=== PATIENT | male | born 2000 | race Caucasian/White ===

== ENCOUNTER 2023-04-02 04:47 | Emergency (ER) | payer OTHER, SELFPAY ==
[2023-04-02] VITALS (8 sets, daily range): BP systolic 115–141; BP diastolic 63–88; PULSE 50–60; RESP 16; TEMP 36.6; O2SAT 94–98; BMI 25.8
--- NOTE | 2023-04-02 05:01 | ED.HEATRA1 ---
HPI - Head Injury General Chief complaint: Head Injury Stated complaint: HEADACHE Time Seen by Provider: 04/02/23 05:00 History of Present Illness HPI Narrative: Patient presents to emergency department complaining of headache. Patient states he had a fall from a ladder approximately 7 feet with loss of consciousness for a minute. He was seen at the [facility] emergency Department on 03/29/2023. He had some coffee-ground emesis and subsequently was sent to [facility] where he had a brain CT scan repeated and was found to have frontal hemorrhagic contusion, left temporal fracture and a small left temporal hemorrhage. Patient was discharged home yesterday on a scopolamine patch, and fioricet. Patient returned today complaining of worsening headache. He states is very nauseated and has epigastric discomfort. He states he had an ultrasound done at the bedside but has not had any imaging of his abdomen done. Patient denies any visual disturbance, or speech difficulties. He denies any paresthesias, or weakness. He denies any chest pain, or shortness of breath. Related Data Home Medications Medication Instructions Recorded Confirmed [id number]-qmtwiwsvwipyc-ehymyswe 1 tab PO Q4H 04/02/23 04/02/23 50 mg-325 mg-40 mg tablet sodium chloride 04/02/23 Allergies Allergy/AdvReac Type Severity Reaction Status Date / Time No Known Drug Allergies Allergy Verified 04/02/23 05:05 Review of Systems ROS Status of ROS 10 or more systems reviewed and unremarkable except as noted in history and below PFSH PFSH Social History Smoking status: Never smoker Exam Narrative Exam Narrative: Nurses notes and vital signs reviewed and patient is not hypoxic. General: Nontoxic, appears in pain, but in no apparent distress. Skin: Warm, dry, no pallor noted. No Rash Head: Normocephalic, 2 denton to the occipital area Neck: Supple, non-tender. Eye: Pupils are equal, round and EOMI. No scleral icterus. Ears, Nose, Mouth, and Throat: no Hemotympanum,TM clear, no posterior oropharynx erythema or nasal mucosal hypertrophy, uvula is mid-line Oral mucosa is moist Cardiovascular: Regular Rate and Rhythm without murmur, gallop or rub. Respiratory: No accessory muscle use or respiratory distress. Lungs are clear to auscultation, no wheezing, rales or rhonchi Chest Wall: no tenderness Back: No midline thoracic or lumbar vertebral tenderness. No CVA tenderness Musculoskeletal: normal ROM, no calf or popliteal tenderness, no lower extremity edema/swelling GI: Abdomen is soft, non-distended. Normal bowel sounds. No masses appreciated. No tenderness to palpation. No rebound, guarding, or rigidity noted. Neurological: A&O x4. No cranial nerve dysfunction observed. No truncal ataxia. Moves all extremities. Sensation intact. Psychiatric: Cooperative and interactive. Normal mood and affect. Constitutional Vital Signs - 24 hr 04/02/23 04:51 04/02/23 07:04 04/02/23 07:06 Temperature 98 F Pulse Rate [Monitor] 50 L 60 Respiratory Rate 16 16 Blood Pressure Blood Pressure [Left Arm] 115/64 122/63 H Pulse Oximetry 97 98 97 Oxygen Delivery Method Room Air Room Air 04/02/23 07:07 Temperature Pulse Rate [Monitor] Respiratory Rate Blood Pressure 120/69 H Blood Pressure [Left Arm] Pulse Oximetry 97 Oxygen Delivery Method Course Vital Signs Vital signs: Vital Signs Temperature 98 F 04/02/23 04:51 Pulse Rate 50 L 04/02/23 04:51 Respiratory Rate 16 04/02/23 04:51 Blood Pressure 115/64 04/02/23 04:51 Pulse Oximetry 97 04/02/23 04:51 Oxygen Delivery Method Room Air 04/02/23 04:51 Temperature 98 F 04/02/23 04:51 Pulse Rate 60 04/02/23 07:04 Respiratory Rate 16 04/02/23 07:04 Blood Pressure 120/69 H 04/02/23 07:07 Pulse Oximetry 97 04/02/23 07:07 Oxygen Delivery Method Room Air 04/02/23 07:04 MDM - Head Injury MDM Narrative Medical decision making narrative: Patient had an IV established, given 1 L of normal saline, 4 mg of Zofran, and 4 mg of morphine. pt has scopolamine patch on. He states he is getting more nauseated and has epigastric pain. Patient was given Pepcid, Phenergan, and a gastrointestinal cocktail was ordered but he still has not been giving until the nausea is controlled. All results discussed with patient. Radiologist has called me to advise me of the CT scan findings. At this point we still did not have the CT scan results and records from [facility]. Once the records were obtained they were reviewed and trauma surgeon Dr. Wall was intact to discuss the patient. The images where pushed through to [facility] PACS system so that they can review all of the CT scans. Dr. Wall will call us back. Trauma surgery calls back and states he is able to review all of the images. He does not see significant change and the hemorrhage or the edema. He advised if we can continue to give the patient analgesics and antibiotics and see how he does we could discharge if he improves however if the patient is not improving they will be happy to accept him there as a transfer. The patient stated his headache had improved but he was having abdominal pain worsened epigastric region and right upper quadrant pain. At this time a CT scan of the abdomen and pelvis with IV contrast was ordered. The patient will be signed out to Dr. Mann the end of my shift awaiting CT scan results, reevaluation, and disposition. Lab Data Attestation: I reviewed the patient's lab results. Labs: Lab Results 04/02/23 Range/Units 05:10 Sodium 136 (136-145) mmol/L Potassium 3.8 (3.5-5.1) mmol/L Chloride 103 (98-107) mmol/L Carbon Dioxide 23.6 (21.0-32.0) mmol/L Anion Gap 13.2 BUN 9.0 (7.0-18.0) mg/dL Creatinine 1.00 (0.70-1.30) mg/dL Est GFR ( Amer) >60 (>=60) Est GFR (Non-Af Amer) >60 (>=60) BUN/Creatinine Ratio 9.0 Glucose 93 (74-106) mg/dL Calcium 8.6 (8.5-10.1) mg/dL Total Bilirubin 0.7 (0.2-1.0) mg/dL AST 24 (15-37) U/L ALT 63 (16-63) U/L Alkaline Phosphatase 50 (46-116) U/L Total Protein 7.1 (6.4-8.2) g/dL Albumin 3.5 (3.4-5.0) g/dL Globulin 3.6 g/dL Albumin/Globulin Ratio 1.[address] scan - head: Attestation: I have reviewed the pertinent imaging results. Radiologist's impression: Patient Name: CALLI OWEN MRN: [id number] date: 2000 Sex: M Assigned Patient Location: ER Current Patient Location: ER Accession/Order Number: [id number] Exam Date: 04/02/2023 05:20 Report Date: 04/02/2023 05:59 At the request of: JONY RAMOS Procedure: CT head/brain wo con EXAM: CT head/brain wo con HISTORY: head injury COMPARISON: None. TECHNIQUE: Axial CT images of the brain were obtained without contrast. Dose reduction techniques were achieved by using automated exposure control and/or adjustment of mA and/or kV according to patient size and/or use of iterative reconstruction technique. FINDINGS: The ventricles and cerebral sulci appear age-appropriate. There is evidence of hemorrhagic contusions within the anterior inferior bifrontal lobes, right greater than left with the largest hemorrhagic component measuring approximately 5 mm with surrounding vasogenic edema.. Hemorrhagic contusions also noted along the inferior left temporal lobe, largest component measuring 7 mm. Hemorrhagic contusion versus small subdural hemorrhage noted along the anterior left temporal convexity. Small focus of cortical contusion noted along the parasagittal left frontal lobe. No evidence for midline shift or herniation. No evidence for obstructive hydrocephalus. No acute territorial infarct visualized. Basal cisterns are patent. Acute nondisplaced fracture visualized along the left temporal bone/mastoid region. Hemorrhagic products noted within the left-sided mastoid air cells. The ossicles appear intact. Orbits appear unremarkable. IMPRESSION: Study is limited by motion degraded artifact. 1. Acute hemorrhagic contusions with surrounding vasogenic edema noted involving the anterior inferior bifrontal lobes, right greater than left and with involvement of the inferior left temporal lobe, with the largest hemorrhagic component measuring 7 mm. Hemorrhagic contusion versus small subdural hemorrhage noted along the anterior left temporal convexity. 2. No evidence for significant mass effect or midline shift. 3. Acute nondisplaced fracture visualized along the left temporal bone/mastoid air cells with trace hemorrhagic products noted within the left mastoid air cells. Ossicles appear intact. Findings were relayed to Dr. Ramos over telephone by Dr. Martinez at 5:58 AM on 04/02/2023. Electronically authenticated by: GIFTY MARTINEZ Date: 04/02/2023 05:59 Discharge Plan Discharge Chief Complaint: Head Injury Clinical Impression: Traumatic intraparenchymal hemorrhage Prescriptions / Home Meds: No Action [id number]-[id number] 50-325-40 mg tablet 1 tab PO Q4H sodium chloride 1 g capsule Rx Instructions: 2 tabs by mouth TID for 7 days Referrals: Physician,Non-Staff, MD [Primary Care Provider] - 1 week
--- NOTE | 2023-04-02 05:07 | CT_ITS ---
The [address] [address] Patient Name: CALLI OWEN MRN: [id number] date: 2000 Sex: M Assigned Patient Location: ER Current Patient Location: ER Accession/Order Number: [id number] Exam Date: 04/02/2023 05:20 Report Date: 04/02/2023 05:59 At the request of: JONY RAMOS Procedure: CT head/brain wo con EXAM: CT head/brain wo con HISTORY: head injury COMPARISON: None. TECHNIQUE: Axial CT images of the brain were obtained without contrast. Dose reduction techniques were achieved by using automated exposure control and/or adjustment of mA and/or kV according to patient size and/or use of iterative reconstruction technique. FINDINGS: The ventricles and cerebral sulci appear age-appropriate. There is evidence of hemorrhagic contusions within the anterior inferior bifrontal lobes, right greater than left with the largest hemorrhagic component measuring approximately 5 mm with surrounding vasogenic edema.. Hemorrhagic contusions also noted along the inferior left temporal lobe, largest component measuring 7 mm. Hemorrhagic contusion versus small subdural hemorrhage noted along the anterior left temporal convexity. Small focus of cortical contusion noted along the parasagittal left frontal lobe. No evidence for midline shift or herniation. No evidence for obstructive hydrocephalus. No acute territorial infarct visualized. Basal cisterns are patent. Acute nondisplaced fracture visualized along the left temporal bone/mastoid region. Hemorrhagic products noted within the left-sided mastoid air cells. The ossicles appear intact. Orbits appear unremarkable. IMPRESSION: Study is limited by motion degraded artifact. 1. Acute hemorrhagic contusions with surrounding vasogenic edema noted involving the anterior inferior bifrontal lobes, right greater than left and with involvement of the inferior left temporal lobe, with the largest hemorrhagic component measuring 7 mm. Hemorrhagic contusion versus small subdural hemorrhage noted along the anterior left temporal convexity. 2. No evidence for significant mass effect or midline shift. 3. Acute nondisplaced fracture visualized along the left temporal bone/mastoid air cells with trace hemorrhagic products noted within the left mastoid air cells. Ossicles appear intact. Findings were relayed to Dr. Ramos over telephone by Dr. Wolfe at 5:58 AM on 04/02/2023. Electronically authenticated by: GIFTY WOLFE Date: 04/02/2023 05:59
[2023-04-02] MEDS: 0.9 % SODIUM CHLORIDE 1,000 ML 999 ML IV (05:33)
[2023-04-02] MEDS: MORPHINE SULFATE 4 MG/ML VIAL IV (05:33)
[2023-04-02] MEDS: ONDANSETRON PF 4 MG/2 ML VIAL IV (05:33)
[2023-04-02] MEDS: FAMOTIDINE/PF 20 MG/2 ML VIAL IV (06:38)
[2023-04-02] MEDS: PROMETHAZINE HCL 25 MG/ML VIAL IV (06:38)
[2023-04-02] MEDS: 0.9 % SODIUM CHLORIDE 50 ML 100 ML IV (07:02)
[2023-04-02 07:08] LABS: Alanine Aminotransferase 63 U/L (16-63); Albumin Level 3.5 g/dL (3.4-5.0); Alkaline Phosphatase 50 U/L (46-116); Anion Gap 13.2; Aspartate Amino Transferase 24 U/L (15-37); Bilirubin Total 0.7 mg/dL (0.2-1.0); Calcium 8.6 mg/dL (8.5-10.1); Carbon Dioxide 23.6 mmol/L (21.0-32.0); Chloride 103 mmol/L (98-107); Estimated GFR (African America >60 (>=60); Estimated GFR (Non-African Ame >60 (>=60); Globulin 3.6 g/dL; Glucose 93 mg/dL (74-106); Potassium 3.8 mmol/L (3.5-5.1); Sodium 136 mmol/L (136-145); Total Protein 7.1 g/dL (6.4-8.2)
--- NOTE | 2023-04-02 07:10 | CT_ITS ---
The [address] [address] Patient Name: CALLI OWEN MRN: [id number] date: 2000 Sex: M Assigned Patient Location: ER Current Patient Location: Accession/Order Number: [id number] Exam Date: 04/02/2023 07:30 Report Date: 04/02/2023 08:04 At the request of: ELIECER FERNANDEZ Procedure: CT abdomen pelvis w con EXAMINATION: CT ABDOMEN AND PELVIS WITH IV CONTRAST CLINICAL HISTORY: Right upper quadrant and epigastric abdominal pain TECHNIQUE: CT of the abdomen and pelvis was performed using standard technique, scanning from just above the dome of the diaphragm to the symphysis pubis. All CT scans at this facility use dose modulation, iterative reconstruction, and/or weight based dosing when appropriate to reduce radiation dose to as low as reasonably achievable. Contrast: IV: 100 ml of Omnipaque 300 COMPARISON: None. RESULT: Liver: No mass. Biliary: No bile duct dilation. Gallbladder is unremarkable. Spleen: No mass. Splenomegaly craniocaudal length 15.3 cm. Pancreas: No mass or duct dilation. Adrenals: No mass. Kidneys: No mass, calculus or hydronephrosis. GI tract: No dilation or wall thickening. Moderate colonic stool. Appendix is unremarkable. Lymph nodes: No abdominal or pelvic lymphadenopathy. Mesentery/Peritoneum: No ascites or mass. Retroperitoneum: No mass. Vasculature: The celiac axis and SMA are patent. The portal vein and branches, splenic vein, SMV, and hepatic veins are patent. No abdominal aortic aneurysm. Pelvis: No mass, ascites or fluid collection. Urinary bladder is unremarkable. Trace pelvic free fluid. Bones/Soft Tissues: No significant finding. Lower thorax: Unremarkable. IMPRESSION: No acute findings in the abdomen and pelvis. Splenomegaly. Electronically authenticated by: MAKENNA JOSEPH Date: 04/02/2023 08:04
[2023-04-02 07:15] LABS: Basophils Percent Auto 0.5 % (0.2-2.0); Eosinophils Absolute Auto 0.1 10^3/uL (0.0-0.7); Eosinophils Percent Auto 1.3 % (0.9-7.0); Hemoglobin 13.8 g/dL (14.0-18.0); Immature Granulocytes Abs Auto 0.01 10^3/uL (0.00-0.03); Immature Granulocytes Pct Auto 0.3 % (0.0-0.5); Lymphocytes Absolute Auto 0.9 10^3/uL (1.2-3.8); Lymphocytes Percent Auto 22.8 % (20.5-60.0); Mean Corpuscular HGB Conc 32.9 g/dL (29.9-35.2); Mean Corpuscular Hemoglobin 27.9 pg (25.9-34.0); Monocytes Absolute Auto 0.5 10^3/uL (0.3-0.8); Monocytes Percent Auto 12.4 % (1.7-12.0); Neutrophils Absolute Auto 2.4 10^3/uL (1.4-6.5); Neutrophils Percent Auto 62.7 % (43.0-75.0); Platelet Count 130 10^3/uL (150-450); Red Blood Count 4.94 10^6/uL (4.70-6.10); Red Cell Distribution Width 13.2 % (11.0-15.0); White Blood Count 3.8 10^3/uL (4.0-11.0)
[2023-04-02 07:21] LABS: INR 1.03; Prothrombin Time 10.9 sec (9.0-11.6)
== END 2023-04-02 09:52 | disposition home or self-care (01) ==
PROVIDERS: Emergency Provider Emergency Medicine
DX: E86.0 Dehydration (principal); E86.9 Volume depletion, unspecified; R16.1 Splenomegaly, not elsewhere classified; S06.2X1D Diffuse traumatic brain injury with loss of consciousness of 30 minutes or less, subsequent encounter; W11.XXXD Fall on and from ladder, subsequent encounter
CPT/HCPCS: 36415; 70450; 74177; 80053; 85025; 85610; 96374; 96375; 99285; Q9967

== ENCOUNTER 2024-03-05 11:17 | Emergency (ER) | payer SELFPAY ==
[2024-03-05 11:30] VITALS: BP 144/105; PULSE 79; TEMP 37.1; O2SAT 98; BMI 28.1
[2024-03-05] MEDS: LIDOCAINE HCL 1% 100 MG/10 ML MDV 20 ML INJ (11:55)
--- NOTE | 2024-03-05 12:40 | ED.GENADUL1 ---
HPI HPI - General Adult General Chief complaint: Wound/Laceration Stated complaint: CYSTS ON BACK Time Seen by Provider: 03/05/24 11:42 Source: patient Mode of arrival: walk-in Limitations: no limitations History of Present Illness HPI narrative: 23-year-old male presents to the emergency department for a chief complaint of red tender swollen area near his tailbone. There is been no trauma and he has had this for few days. There is been some drainage at home. He has had this before and it went away and he never sought medical care previously. The pain is moderate and is worse when he touches it. Related Data Previous Rx's ?Medication ?Instructions ?Recorded cephalexin 500 mg capsule 500 mg PO QID 10 days #40 caps 03/05/24 hydrocodone 5 mg-acetaminophen 325 1 tab PO Q6H PRN pain 5 days #20 03/05/24 mg tablet tabs sulfamethoxazole 800 1 tab PO BID 10 days #20 tabs 03/05/24 mg-trimethoprim 160 mg tablet (Bactrim DS) Allergies Allergy/AdvReac Type Severity Reaction Status Date / Time No Known Drug Allergies Allergy Verified 04/02/23 05:05 Opioid HPI Opioid Management Most Recent Opioid Data: Last Pain Scale 0 04/02/23 07:58 Review of Systems ROS Narrative A ten point review of systems is negative except as noted above. PFSH PFSH Social History Smoking status: Never smoker Exam Narrative Exam Narrative: Nurses note and vital signs reviewed and patient is not hypoxic. General: The patient appears well and in no apparent distress. Patient is resting comfortably on cart. Skin: Warm, dry, no pallor noted. There is no rash noted. Head: Normocephalic, atraumatic Eye: Normal conjunctiva, no drainage Ears, Nose, Mouth, and Throat: oral mucosa is moist. Nares patent. Cardiovascular: Regular Rate and Rhythm Respiratory: Patient is in no distress, no accessory muscle use, lungs are clear to auscultation, no wheezing, rales or rhonchi Back: Coccygeal area has tender erythematous fluctuant slightly swollen area. GI: Soft and nontender Musculoskeletal: The patient has no evidence of calf tenderness, no pitting edema, symmetrical pulses noted bilaterally Neurological: A&O, normal speech Psychiatric: Cooperative Constitutional Vital Signs, click to edit/add: Last Vital Signs Temp 98.7 F 03/05/24 11:30 Pulse 79 03/05/24 11:30 Resp 15 03/05/24 11:30 BP 144/105 H 03/05/24 11:30 Pulse Ox 98 03/05/24 11:30 O2 Del Method Room Air 03/05/24 11:30 Course Vital Signs Vital signs: Vital Signs Temperature 98.7 F 03/05/24 11:30 Pulse Rate 79 03/05/24 11:30 Respiratory Rate 15 03/05/24 11:30 Blood Pressure 144/105 H 03/05/24 11:30 Pulse Oximetry 98 03/05/24 11:30 Oxygen Delivery Method Room Air 03/05/24 11:30 Temperature 98.7 F 03/05/24 11:30 Pulse Rate 79 03/05/24 11:30 Respiratory Rate 15 03/05/24 11:30 Blood Pressure 144/105 H 03/05/24 11:30 Pulse Oximetry 98 03/05/24 11:30 Oxygen Delivery Method Room Air 03/05/24 11:30 Medical Decision Making [facility] Narrative Medical decision making narrative: My clinical impression is that the patient has a pilonidal abscess. The following procedure was performed by me. Local infiltration was carried out with 1% lidocaine without epinephrine resulting in complete skin anesthesia. The area was prepped with Betadine x 3 and draped sterilely. Using a #11 blade the abscess was incised and drained of a small amount of purulent material and quarter inch iodoform packing applied. No complications. He was advised to have the packing removed in 24 hours and is prescribed Bactrim and Keflex and Fords. He was also given a work note. Treatment diagnosis and follow-up were discussed with the patient. Differential Diagnosis Differential Diagnosis: Pilonidal abscess, cellulitis Discharge Plan Discharge Stand Alone Forms: Portal Instructions Chief Complaint: Wound/Laceration Clinical Impression: Pilonidal abscess Patient Disposition: Home, Self-Care Time of Disposition Decision: 12:38 Condition: Good Mode of Transportation: Private Vehicle Prescriptions / Home Meds: New hydrocodone-acetaminophen 5-325 mg tablet 1 tab PO Q6H PRN (Reason: pain) 5 Days Qty: 20 0RF sulfamethoxazole-trimethoprim [Bactrim DS] 800-160 mg tablet 1 tab PO BID 10 Days Qty: 20 0RF cephalexin 500 mg capsule 500 mg PO QID 10 Days Qty: 40 0RF Print Language: Angolan Instructions: Pilonidal Cyst (ED), Abscess (ED) Referrals: Physician,Non-Staff, MD [Primary Care Provider] - 1 week
[2024-03-05 12:55] VITALS: BP 126/87; PULSE 86; O2SAT 99
== END 2024-03-05 12:56 | disposition home or self-care (01) ==
PROVIDERS: Emergency Provider Emergency Medicine
DX: L05.01 Pilonidal cyst with abscess (principal)
CPT/HCPCS: 10080; 99284